=== PATIENT | male | born 1955 | race American Indian/Alaskan Native ===

== ENCOUNTER 2016-09-29 18:30 | Emergency (ER) | payer MEDICARE, OTHER ==
[2016-09-29 18:43] VITALS: BP 129/68
[2016-09-29 19:47] LABS: CHLORIDE,CL 98 mmol/L (101-111); SODIUM,NA 135 mmol/L (135-145)
[2016-09-29] MEDS ORDERED: Albuterol/Ipratropium 3.0-0.5 MG/3 ML Neb Soln NEB ONE (19:54)
[2016-09-29] MEDS ORDERED: Acetaminophen/oxyCODONE 325-5 MG Tab PO ONE (20:47)
[2016-09-29] MEDS ORDERED: Azithromycin 250 MG Tab PO ONE (20:48)
--- NOTE | 2016-09-29 20:51 | EDM.PDOC ---
ED HPI GENERAL MEDICAL PROBLEM - General Chief Complaint: General Stated Complaint: SICK IN BY AMB Time Seen by Provider: 09/29/16 19:00 Source of Information: Reports: Patient, Family History Limitations: Reports: No limitations - History of Present Illness INITIAL COMMENTS - FREE TEXT/NARRATIVE: ED via [facility] ,c/o not feeling well with fever, weakness. ocassional dry cough for past few weeks. Tylenol 2 hours SECURITY LEAD. notes BP elevated last night and hi temp, ambulance called by son but patient refused transport. Brief chest pain took 2 nitro. Notes takes nitro at least one time monthly. Location: Reports: generalized Treatments SECURITY LEAD: Reports: Acetaminophen Bilateral Shoulder Pain Score (Numeric/FACES): 8 - Related Data Allergies Allergy/AdvReac Type Severity Reaction Status Date / Time Penicillins Allergy Shortness Verified 09/29/16 18:48 of Breath ibuprofen [From Motrin] AdvReac Redness Verified 09/29/16 18:48 Home Meds: Home Meds Furosemide [Furosemide] 10/17/13 [History] Furosemide [Furosemide] 0.5 tab PO DAILY 10/17/13 [History] Insulin Detemir [Levemir] 10/17/13 [History] Loratadine [Claritin] 1 tab PO ASDIRECTED 10/17/13 [History] Zolpidem [Ambien] 1 tab PO ASDIRECTED 10/17/13 [History] atorvaSTATin [Lipitor] 20 mg PO BEDTIME 10/17/13 [History] oxyCODONE HCl [Oxycodone HCl] 10/17/13 [History] Metformin 01/05/16 [History] Past Medical History Cardiovascular History: Reports: Afib, Heart Failure, Hypertension, [place] Respiratory History: Reports: Sleep apnea Gastrointestinal History: Reports: GERD Genitourinary History: Reports: Renal calculus, Renal disease Musculoskeletal History: Reports: Other (see below) Other Musculoskeletal History: chronic bilat. shoulder pain states he has no rotator cuffs left Neurological History: Reports: Other (see below) Other Neuro History: headache Endocrine/Metabolic History: Reports: Diabetes, type II - Past Surgical History Cardiovascular Surgical History: Reports: None GI Surgical History: Reports: None Neurological Surgical History: Reports: Discectomy Musculoskeletal Surgical History: Reports: None Social & Family History - Tobacco Use Smoking Status *Q: Never Smoker Years of Tobacco use: 20 Packs/Tins Daily: 1 Used Tobacco, but Quit: Yes Month Tobacco Last Used: unknown Second Hand Smoke Exposure: Yes - Caffeine Use Caffeine Use: Reports: Coffee, Tea - Alcohol Use Days Per Week of Alcohol Use: 0 - Recreational Drug Use Recreational Drug Use: No ED ROS GENERAL - Review of Systems Review Of Systems: See Below Constitutional: Reports: fever, chills, weakness HEENT: Reports: No symptoms Respiratory: Reports: cough Cardiovascular: Reports: Chest pain (last ruma no radiation), Blood pressure problem (last ruma) : Reports: no symptoms Musculoskeletal: Reports: no symptoms Skin: Reports: no symptoms Neurological: Reports: weakness (general) Psychiatric: Reports: No symptoms ED EXAM, GENERAL - Physical Exam Exam: See Below Exam Limited By: No limitations General Appearance: alert, anxious (irritable), mild distress Eye Exam: bilateral eye: EOMI Ears: normal external exam Ear Exam: bilateral ear: TM normal Nose: normal inspection Throat/Mouth: Normal inspection Head: atraumatic, normocephalic Neck: normal inspection Respiratory/Chest: no respiratory distress, wheezing (upper bilateral), other ( rare dry cough). No: crackles, rales, rhonchi Cardiovascular: normal peripheral pulses, regular rate, rhythm, no edema GI/Abdominal: normal bowel sounds Extremities: normal inspection Neurological: alert, oriented Psychiatric: flat affect Skin Exam: Warm, Dry, Intact, Normal color Course - Vital Signs Last Recorded V/S: Last Vital Signs Temp 101.1 F H 09/29/16 20:33 Pulse 96 09/29/16 18:36 Resp 19 09/29/16 18:36 BP 129/68 09/29/16 18:36 Pulse Ox 94 L 09/29/16 18:36 - Orders/Labs/Meds Orders: Active Orders 24 hr Category Date Time Status EKG 12 Lead [EKG Documentation Completion] [] URGENT Care 09/29/16 19:15 Active Glucose [Blood Glucose Check, Bedside] [] ONETIME Care 09/29/16 19:14 Active RT Aerosol Therapy [] ASDIRECTED Care 09/29/16 19:54 Active CULTURE STREP A CONFIRMATION [] Stat Lab 09/29/16 19:00 Results STREP SCRN A RAPID W CULT CONF [] Stat Lab 09/29/16 19:00 Results Labs: Laboratory Tests 09/29/16 09/29/16 09/29/16 Range/Units 19:14 19:20 19:20 WBC 13.7 H (5.0-10.0) 10^3/uL RBC 4.48 L (4.6-6.2) 10^6/uL Hgb 12.8 L (14.0-18.0) g/dL Hct 38.9 L (40.0-54.0) % MCV 86.8 (80-100) fL MCH 28.6 (27.0-34.0) pg MCHC 32.9 L (33.0-35.0) g/dL Plt Count 268 (150-450) 10^3/uL Neut % (Auto) 82.8 H (42.2-75.2) % Lymph % (Auto) 9.4 L (20.5-50.1) % [place] % (Auto) 7.5 (2-8) % Eos % (Auto) 0.1 L (1.0-3.0) % Baso % (Auto) 0.2 (0.0-1.0) % Sodium 135 (135-145) mmol/L Potassium 4.5 (3.6-5.0) mmol/L Chloride 98 L (101-111) mmol/L Carbon Dioxide 27.0 (21.0-31.0) mmol/L Anion Gap 14.5 BUN 16 (7-18) mg/dL Creatinine 1.2 (0.6-1.3) mg/dL Est Cr Clr Drug Dosing 64.13 mL/min Estimated GFR (MDRD) > 60 BUN/Creatinine Ratio 13.33 Glucose 120 H (74-105) mg/dL POC Glucose (70-105) mg/dl Lactic Acid (0.5-2.2) mmol/L Calcium 8.9 (8.4-10.2) mg/dl Total Bilirubin 0.3 (0.2-1.0) mg/dL AST 26 (10-42) IU/L ALT 18 (10-60) IU/L Alkaline Phosphatase 81 (42-121) IU/L Troponin I < 0.02 (0.00-0.02) ng/ml B-Natriuretic Peptide 29 (0-100) pg/ml Total Protein 7.8 (6.7-8.2) g/dl Albumin 3.8 (3.2-5.5) g/dl Globulin 4.0 Albumin/Globulin Ratio 0.95 Amylase 25 L (28-100) U/L Lipase 18 L (22-51) U/L Urine Color Yellow (YELLOW) Urine Appearance Slightly cloudy (CLEAR) Urine pH 6.0 (5.0-9.0) Ur Specific [place] 1.010 (1.005-1.030) Urine Protein >=300 H (NEGATIVE) Urine Glucose (UA) Negative (NEGATIVE) Urine Ketones Negative (NEGATIVE) Urine Occult Blood Trace-lysed H (NEGATIVE) Urine Nitrite Negative (NEGATIVE) Urine Bilirubin Negative (NEGATIVE) Urine Urobilinogen 0.2 (0.2-1.0) mg/dL Ur Leukocyte Esterase Negative (NEGATIVE) Urine RBC 0-5 /HPF Urine WBC 0-5 (0-5/HPF) /HPF Ur Epithelial Cells Few /HPF Urine Bacteria Few (0-FEW/HPF) /HPF 09/29/16 09/29/16 Range/Units 19:20 19:35 WBC (5.0-10.0) 10^3/uL RBC (4.6-6.2) 10^6/uL Hgb (14.0-18.0) g/dL Hct (40.0-54.0) % MCV (80-100) fL MCH (27.0-34.0) pg MCHC (33.0-35.0) g/dL Plt Count (150-450) 10^3/uL Neut % (Auto) (42.2-75.2) % Lymph % (Auto) (20.5-50.1) % [place] % (Auto) (2-8) % Eos % (Auto) (1.0-3.0) % Baso % (Auto) (0.0-1.0) % Sodium (135-145) mmol/L Potassium (3.6-5.0) mmol/L Chloride (101-111) mmol/L Carbon Dioxide (21.0-31.0) mmol/L Anion Gap BUN (7-18) mg/dL Creatinine (0.6-1.3) mg/dL Est Cr Clr Drug Dosing mL/min Estimated GFR (MDRD) BUN/Creatinine Ratio Glucose (74-105) mg/dL POC Glucose 123 H (70-105) mg/dl Lactic Acid 1.1 (0.5-2.2) mmol/L Calcium (8.4-10.2) mg/dl Total Bilirubin (0.2-1.0) mg/dL AST (10-42) IU/L ALT (10-60) IU/L Alkaline Phosphatase (42-121) IU/L Troponin I (0.00-0.02) ng/ml B-Natriuretic Peptide (0-100) pg/ml Total Protein (6.7-8.2) g/dl Albumin (3.2-5.5) g/dl Globulin Albumin/Globulin Ratio Amylase (28-100) U/L Lipase (22-51) U/L Urine Color (YELLOW) Urine Appearance (CLEAR) Urine pH (5.0-9.0) Ur Specific [place] (1.005-1.030) Urine Protein (NEGATIVE) Urine Glucose (UA) (NEGATIVE) Urine Ketones (NEGATIVE) Urine Occult Blood (NEGATIVE) Urine Nitrite (NEGATIVE) Urine Bilirubin (NEGATIVE) Urine Urobilinogen (0.2-1.0) mg/dL Ur Leukocyte Esterase (NEGATIVE) Urine RBC /HPF Urine WBC (0-5/HPF) /HPF Ur Epithelial Cells /HPF Urine Bacteria (0-FEW/HPF) /HPF Meds: Medications Discontinued Medications Generic Name Dose Route Start Last Admin Trade Name Cucoq PRN Reason Stop Dose Admin Albuterol/Ipratropium 3 ml 09/29/16 19:54 09/29/16 19:59 Duoneb 3.0-0.5 Mg/3 Ml NEB 09/29/16 19:55 3 ml ONETIME ONE Administration Azithromycin 500 mg 09/29/16 20:48 09/29/16 20:55 Zithromax PO 09/29/16 20:49 500 mg ONETIME ONE Administration Oxycodone/Acetaminophen 1 tab 09/29/16 20:47 09/29/16 20:56 Percocet 325-5 Mg PO 09/29/16 20:48 1 tab ONETIME ONE Administration - Re-Assessments/Exams Free Text/Narrative Re-Assessment/Exam: Increasing agitation while awaiting results from ordered studies, c/o back pain from having to lie in bed and chair uncomfortable, has chronic pain and overdue for oxy. Demanding to leave. Stating he had been here over 4 hours. Patient unreceptive to explanation of processing time for studies and results. ED also busy with multiple patients. Actual ED time 2 hours. Cresencio with while attempting to answer her questions and explain discharge plan. 09/30/16 05:43 Departure - Departure Time of Disposition: 05:42 Disposition: Home, Self-Care 01 Condition: fair, undetermined Clinical Impression: Bronchitis Instructions: Acute Bronchitis Referrals: Armando Esparza MD [Ordering Only Provider] - Forms: ED Department Discharge Additional Instructions: azithromycin 250mg one daily x4 increase fluid intake humidification tylenol as needed for fever tessalon pearles 200mg one every 8 hours as needed for cough robitussin per label instructions follow up if symptoms worsening - My Orders Last 24 Hours: My Active Orders 09/29/16 19:00 CULTURE STREP A CONFIRMATION [RM] Stat STREP SCRN A RAPID W CULT CONF [RM] Stat 09/29/16 19:14 Glucose [Blood Glucose Check, Bedside] [RC] ONETIME 09/29/16 19:15 EKG 12 Lead [EKG Documentation Completion] [RC] URGENT 09/29/16 19:54 RT Aerosol Therapy [RC] ASDIRECTED - Assessment/Plan Last 24 Hours: My Active Orders 09/29/16 19:00 CULTURE STREP A CONFIRMATION [RM] Stat STREP SCRN A RAPID W CULT CONF [RM] Stat 09/29/16 19:14 Glucose [Blood Glucose Check, Bedside] [RC] ONETIME 09/29/16 19:15 EKG 12 Lead [EKG Documentation Completion] [RC] URGENT 09/29/16 19:54 RT Aerosol Therapy [RC] ASDIRECTED
--- NOTE | 2016-09-30 14:40 | EKG ---
09/29/2016- TAN HE - A 12-lead EKG shows normal sinus rhythm. No significant ST elevation or ST depression noted on this 12-lead EKG except for nonspecific ST changes noted on lead aVR. [facility] /[id number]
== END 2016-09-29 20:59 | disposition home or self-care (01) ==
LOC: DL.ED 18:30
DX: J40 Bronchitis, not specified as acute or chronic (principal); I48.91 Unspecified atrial fibrillation; I11.0 Hypertensive heart disease with heart failure; I50.9 Heart failure, unspecified; I25.2 Old myocardial infarction; K21.9 Gastro-esophageal reflux disease without esophagitis; E11.9 Type 2 diabetes mellitus without complications; Z88.6 Allergy status to analgesic agent; Z88.0 Allergy status to penicillin; Z79.4 Long term (current) use of insulin; Z79.899 Other long term (current) drug therapy; Z79.84 Long term (current) use of oral hypoglycemic drugs
CPT/HCPCS: 36415; 71010; 80053; 81001; 82150; 82962; 83605; 83690; 83880; 84484; 85025; 87081; 87430; 87804; 93005; 93010; 94640; 99284; A9270

== ENCOUNTER 2016-10-14 01:23 | Emergency (ER) | payer MEDICARE, OTHER ==
[2016-10-14 01:38] VITALS: BP 150/78
[2016-10-14] MEDS ORDERED: Pantoprazole 80 MG in Sodium Chloride 0.9% 100 ML IV ONE (01:44)
[2016-10-14 02:00] LABS: CHLORIDE,CL 108 mmol/L (101-111); SODIUM,NA 140 mmol/L (135-145)
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
[2016-10-14] MEDS ORDERED: oxyCODONE 5 MG Tab PO ONE (03:09)
--- NOTE | 2016-10-14 11:09 | EKG ---
10/14/2016 - TAN HE - EKG shows normal sinus rhythm. [facility] /[id number]
== END 2016-10-14 03:21 | disposition left against medical advice (07) ==
LOC: DL.ED 01:23
DX: R07.9 Chest pain, unspecified (principal); I48.91 Unspecified atrial fibrillation; I11.0 Hypertensive heart disease with heart failure; I50.9 Heart failure, unspecified; I25.2 Old myocardial infarction; K21.9 Gastro-esophageal reflux disease without esophagitis; E11.9 Type 2 diabetes mellitus without complications; Z88.0 Allergy status to penicillin; Z88.6 Allergy status to analgesic agent; Z79.4 Long term (current) use of insulin
CPT/HCPCS: 36415; 71010; 80053; 82150; 82553; 82962; 83605; 83690; 83880; 84484; 85025; 85610; 93005; 93010; 96365; 99285; C9113; J7050; 99284

== ENCOUNTER 2016-10-14 12:54 | Emergency (ER) | payer MEDICARE, OTHER ==
--- NOTE | 2016-10-14 14:14 | EDM.PDOC ---
ED HPI GENERAL MEDICAL PROBLEM - General Chief Complaint: Abdominal Pain Stated Complaint: abdominal pain Time Seen by Provider: 10/14/16 13:46 Source of Information: Reports: Patient History Limitations: Reports: No limitations - History of Present Illness INITIAL COMMENTS - FREE TEXT/NARRATIVE: This 61 yo male patient was sent to the ED from Dr. Mcmahan's office. The patient reports has has not been feeling well over the past 3 months. When he was asked about what he was feeling, the patient reports he has been having abdominal pain, coughing up blood intermittently, diarrhea intermittently, and having difficulties urinating. The patient was upset that law enforcement was present during his visit. The patient was advised that law enforcement was called due to his behavior during the previous visit (at 0300 this morning). The patient stated that he was not behaving bad last night, but "that female provider was being a racist." The patient reports that the "punks" from the ambulance "did not know what they were doing." The patient went on to say, "I will go up to that ambulance crew, stand them up on their head and show them what to be afraid of." Duration: Week(s): (3 months), Constant Location: Reports: abdomen Quality: Reports: Ache Severity: moderate Improves with: Reports: None Worsens with: Reports: None Middle Abdominal Pain Score (Numeric/FACES): 7 - Related Data Allergies Allergy/AdvReac Type Severity Reaction Status Date / Time Penicillins Allergy Shortness Verified 10/14/16 13:18 of Breath ibuprofen [From Motrin] AdvReac Redness Verified 10/14/16 13:18 Home Meds: Home Meds Furosemide [Furosemide] 10/17/13 [History] Furosemide [Furosemide] 0.5 tab PO DAILY 10/17/13 [History] Insulin Detemir [Levemir] 10/17/13 [History] Loratadine [Claritin] 1 tab PO ASDIRECTED 10/17/13 [History] Zolpidem [Ambien] 1 tab PO ASDIRECTED 10/17/13 [History] atorvaSTATin [Lipitor] 20 mg PO BEDTIME 10/17/13 [History] oxyCODONE HCl [Oxycodone HCl] 10/17/13 [History] Metformin 01/05/16 [History] Past Medical History Cardiovascular History: Reports: Afib, Heart Failure, High cholesterol, Hypertension, [place] Respiratory History: Reports: Sleep apnea Gastrointestinal History: Reports: GERD Genitourinary History: Reports: Renal calculus, Renal disease Musculoskeletal History: Reports: Other (see below) Other Musculoskeletal History: chronic bilat. shoulder pain states he has no rotator cuffs left Neurological History: Reports: Other (see below) Other Neuro History: headache Endocrine/Metabolic History: Reports: Diabetes, type II - Past Surgical History Cardiovascular Surgical History: Reports: None GI Surgical History: Reports: None Neurological Surgical History: Reports: Discectomy Musculoskeletal Surgical History: Reports: None Social & Family History - Tobacco Use Smoking Status *Q: Former Smoker Years of Tobacco use: 20 Packs/Tins Daily: 1 Used Tobacco, but Quit: Yes Month Tobacco Last Used: unknown Second Hand Smoke Exposure: No - Caffeine Use Caffeine Use: Reports: Coffee - Alcohol Use Days Per Week of Alcohol Use: 0 - Recreational Drug Use Recreational Drug Use: No ED ROS GENERAL - Review of Systems Review Of Systems: ROS reveals no pertinent complaints other than HPI. ED EXAM, GENERAL - Physical Exam Exam: See Below Exam Limited By: No limitations General Appearance: alert, WD/WN, anxious, moderate distress, obese Eye Exam: bilateral eye: EOMI, normal inspection, PERRL Ears: normal external exam, normal canal, hearing grossly normal, normal TMs Nose: normal inspection, normal mucosa, no blood Throat/Mouth: Normal inspection, Normal lips, Normal teeth, Normal gums, Normal oropharynx, Normal voice, No airway compromise Head: atraumatic, normocephalic Neck: normal inspection, supple, non-tender, full range of motion Respiratory/Chest: no respiratory distress, lungs clear, normal breath sounds, no accessory muscle use, chest non-tender Cardiovascular: normal peripheral pulses, regular rate, rhythm, no edema, no gallop, no JVD, no murmur, no rub GI/Abdominal: normal bowel sounds, no organomegaly, no distention, no abnormal bruit, no mass, tender (diffuse) (Male) Exam: Deferred Rectal (Males) Exam: Deferred Back Exam: normal inspection, full range of motion, NT Extremities: normal inspection, normal range of motion, non-tender, normal capillary refill, no pedal edema Neurological: alert, oriented, CN II-XII intact, normal cognition, normal gait, normal reflexes, no motor/sensory deficits Psychiatric: anxious Skin Exam: Intact, Normal color, No rash, Diaphoretic, Increased warmth Course - Vital Signs Last Recorded V/S: Last Vital Signs Temp 36.3 C 10/14/16 13:36 Pulse 100 10/14/16 13:36 Resp 20 10/14/16 13:36 BP 165/98 H 10/14/16 13:36 Pulse Ox 99 10/14/16 13:36 - Re-Assessments/Exams Free Text/Narrative Re-Assessment/Exam: 10/14/16 14:16 The patient was advised that we will get a sample of blood from the patient to compare to the samples taken earlier today. The patient initially refused to have any additional blood taken, but then finally agreed to the lab work. Soon after leaving the room, the patient and his came out of the room and said that they were going to leave here and go to [place]. The patient was advised that he should stay due to concern for any health problems that are getting worse. The patient was advised that he could from not getting things looked at prior to getting in a vehicle and driving all the way to [place]. The patient stated that he is 62 years old and is not afraid of . Departure - Departure Time of Disposition: 14:15 Disposition: Against Medical Advice 07 Condition: undetermined Clinical Impression: Abdominal pain Qualifiers: Abdominal location: unspecified location Qualified Code(s): R10.9 - Unspecified abdominal pain Forms: ED Department Discharge Care Plan Goals: This patient left prior to complete work-up.
== END 2016-10-14 13:50 | disposition left against medical advice (07) ==
LOC: DL.ED 12:54
CPT/HCPCS: 36415; 71010; 80053; 82150; 82553; 82962; 83605; 83690; 83880; 84484; 85025; 85610; 93005; 93010; 96365; 99282; 99284; 99285; C9113; J7050

== ENCOUNTER 2017-04-05 12:40 | Emergency (ER) | payer MEDICARE, MEDICAID ==
[2017-04-05 13:06] VITALS: BP 168/81
--- NOTE | 2017-04-05 13:18 | EDM.PDOC ---
ED HPI GENERAL MEDICAL PROBLEM - General Chief Complaint: Upper Extremity Injury/Pain Stated Complaint: SHOULDER PAIN Time Seen by Provider: 04/05/17 13:12 Source of Information: Reports: Patient History Limitations: Reports: No Limitations - History of Present Illness INITIAL COMMENTS - FREE TEXT/NARRATIVE: 61 yo white male s/p rotator cuff surgery 04/04/2017. Past Hx. of Chronic Opiod use. Pt. states the 5mg Oxycodone does not work Onset: Today Onset Date: 04/05/17 Onset Time: 06:00 Duration: Hour(s): Location: Reports: Upper Extremity, Right Quality: Reports: Ache Improves with: Reports: Rest Worsens with: Reports: Movement Context: Reports: Trauma (recent surgery) Associated Symptoms: Reports: No Other Symptoms Right Shoulder Pain Score (Numeric/FACES): 10 - Related Data Allergies Allergy/AdvReac Type Severity Reaction Status Date / Time Penicillins Allergy Shortness Verified 10/14/16 13:18 of Breath ibuprofen [From Motrin] AdvReac Redness Verified 10/14/16 13:18 Home Meds: Home Meds Furosemide [Furosemide] 10/17/13 [History] Furosemide [Furosemide] 0.5 tab PO DAILY 10/17/13 [History] Insulin Detemir [Levemir] 10/17/13 [History] Loratadine [Claritin] 1 tab PO ASDIRECTED 10/17/13 [History] Zolpidem [Ambien] 1 tab PO ASDIRECTED 10/17/13 [History] atorvaSTATin [Lipitor] 20 mg PO BEDTIME 10/17/13 [History] oxyCODONE HCl [Oxycodone HCl] 10/17/13 [History] Metformin 01/05/16 [History] Past Medical History Cardiovascular History: Reports: Afib, Heart Failure, High Cholesterol, Hypertension, [place] Respiratory History: Reports: Sleep Apnea Gastrointestinal History: Reports: GERD Genitourinary History: Reports: Renal Calculus, Renal Disease Musculoskeletal History: Reports: Other (See Below) Other Musculoskeletal History: chronic bilat. shoulder pain states he has no rotator cuffs left Neurological History: Reports: Other (See Below) Other Neuro History: headache Endocrine/Metabolic History: Reports: Diabetes, Type II - Past Surgical History GI Surgical History: Reports: None Social & Family History - Family History Family Medical History: Noncontributory - Tobacco Use Smoking Status *Q: Never Smoker Years of Tobacco use: 20 Packs/Tins Daily: 1 Used Tobacco, but Quit: Yes Month Tobacco Last Used: unknown Second Hand Smoke Exposure: No - Caffeine Use Caffeine Use: Reports: Coffee - Alcohol Use Days Per Week of Alcohol Use: 0 - Recreational Drug Use Recreational Drug Use: No Review of Systems - Review of Systems Review Of Systems: See Below Constitutional: Reports: No Symptoms Eyes: Reports: No Symptoms Ears: Reports: No Symptoms Nose: Reports: No Symptoms Mouth/Throat: Reports: No Symptoms Respiratory: Reports: No Symptoms Cardiovascular: Reports: No Symptoms GI/Abdominal: Reports: No Symptoms Genitourinary: Reports: No Symptoms Musculoskeletal: Reports: Shoulder Pain (right) Skin: Reports: No Symptoms Neurological: Reports: No Symptoms Psychiatric: Reports: No Symptoms ED EXAM, GENERAL - Physical Exam Exam: See Below Exam Limited By: No Limitations General Appearance: No Apparent Distress, Obese Eye Exam: Bilateral Eye: EOMI Ears: Normal External Exam Nose: Normal Inspection Throat/Mouth: Normal Inspection Head: Atraumatic Neck: Normal Inspection Respiratory/Chest: No Respiratory Distress Cardiovascular: Normal Peripheral Pulses Peripheral Pulses: 2+: Radial (L), Radial (R) GI/Abdominal: Normal Bowel Sounds Back Exam: Normal Inspection Extremities: Limited Range of Motion (right shoulder) Neurological: Alert, Oriented, CN II-XII Intact Psychiatric: Normal Affect Skin Exam: Warm, Dry Lymphatic: No Adenopathy Course - Vital Signs Last Recorded V/S: Last Vital Signs Temp 36.2 C 04/05/17 12:56 Pulse 76 04/05/17 12:56 Resp 16 04/05/17 12:56 BP 168/81 H 04/05/17 12:56 Pulse Ox 99 04/05/17 12:56 - Orders/Labs/Meds Meds: Medications Discontinued Medications Generic Name Dose Route Start Last Admin Trade Name Freq PRN Reason Stop Dose Admin Hydromorphone HCl 2 mg 04/05/17 13:35 Dilaudid IM 04/05/17 13:36 ONETIME ONE Departure - Departure Time of Disposition: 13:39 Disposition: Home, Self-Care 01 Condition: Good Clinical Impression: Post-op pain - Discharge Information Forms: ED Department Discharge Additional Instructions: Rest and Take oral pain medication as directed only F/U w/ Orthopedic
[2017-04-05] MEDS ORDERED: HYDROmorphone 1 MG/ML Syringe IM ONE (13:35)
== END 2017-04-05 13:59 | disposition home or self-care (01) ==
LOC: DL.ED 12:40
DX: G89.18 Other acute postprocedural pain (principal); M25.511 Pain in right shoulder; I48.91 Unspecified atrial fibrillation; E78.00 Pure hypercholesterolemia, unspecified; I10 Essential (primary) hypertension; I25.2 Old myocardial infarction; K21.9 Gastro-esophageal reflux disease without esophagitis; E11.9 Type 2 diabetes mellitus without complications; Z88.0 Allergy status to penicillin; Z88.6 Allergy status to analgesic agent; Z79.899 Other long term (current) drug therapy; Z79.4 Long term (current) use of insulin
CPT/HCPCS: 96372; 99283; J1170

== ENCOUNTER → 2018-04-24 | Day surgery (SDC) | payer MEDICARE, MEDICAID ==
[~2018-04-24] MED LIST: Dextrose 5%-0.45% NaCl 1,000 ML IV SCH; Midazolam 1 MG/ML 2 ML SDV IV ONE; Midazolam 1 MG/ML 2 ML SDV ONE; Sodium Chloride 0.9% 10 ML Syringe FLUSH PRN; fentaNYL 100 MCG/2 ML SDV IV ONE; fentaNYL 100 MCG/2 ML SDV ONE
[2018-04-24 11:11] VITALS: BP 118/63
--- NOTE | 2018-04-24 11:15 | LETTER ---
04/24/2018 Emmie Landaverde MD [facility] [address] [place] [address] RE: RISHABH CRAFT : [address] Landaverde: Mr. Rishabh Craft had esophagogastroduodenoscopy done this morning and he tolerated the procedure well. I herewith send a copy of the endoscopy note and photographs for your review. Thank you. Sincerely, [facility] /[id number]
--- NOTE | 2018-04-24 11:19 | OR ---
DATE: 04/24/2018 PROCEDURE: Esophagogastroduodenoscopy and multiple pinch biopsies. INSTRUMENT USED: CIF-H180 AL Olympus video panendoscope. PREMEDICATIONS: Fentanyl 100 mcg intravenous, Versed 2 mg intravenous. Nasal O2 cannula. The procedure was done under pulse oximetry, BP recording, and telemetry monitor. INDICATION: The patient with persistent abdominal pain and chronic diarrhea, unexplained and not responsive to medical measures, on high-dose PPI. The esophagogastroduodenoscopy was performed for detection of any active erosive lesions, Mae esophagus and/or malignancy also under consideration. H. pylori status to be determined, small bowel biopsies to be obtained for celiac disease if indicated. Endoscopic hemostasis therapy if needed. DESCRIPTION OF PROCEDURE: The scope was passed with ease. Adequate visualization of the esophagus was made from proximal to distal areas. No upper esophageal lesions identified. No distal esophageal stricture. No uphill or downhill esophageal varices. No Sydney-Miller tear. No evidence of erosive esophagitis by Swift criteria. No esophageal polyp or tumor mass identified. Z-line was seen at around 40 cm distal to the oral verge, configuration consistent with grade 1 by ZAP classification. No proximal gastric varices noted. Gastric fundus examination by retroflexion showed no polypoid lesions. No gastric ulcer, malignant mass, or vascular ectasia identified. Some prominent pre-pyloric gastric antral folds were noted. Multiple pinch biopsies were obtained and sent for histopathology. The pinch biopsies were also obtained from the gastric antrum and proximal body and sent for PyloriTek test for H. pylori and histopathology. Duodenal bulb showed no ulcer. Visualized second part of the duodenum was unremarkable. Multiple pinch biopsies, 4 in number, were taken from different areas of the second part of the duodenum and also tissues were obtained from 9 o'clock and 12 o'clock positions of the duodenal bulb, and sent for any histopathologic evidence of celiac disease. No bleeding was noted from any of the visualized areas at the completion of examination. Photographs were taken of the duodenal bulb, gastric, antrum, fundus, and distal esophagus. IMPRESSION: Normal study. The patient tolerated the procedure well. [facility] /[id number]
== END | disposition home or self-care (01) ==
LOC: DL.ENDO 06:57
PROVIDERS: ATTEND Internal Medicine Gastroenterology
DX: R10.30 Lower abdominal pain, unspecified (principal); K52.9 Noninfective gastroenteritis and colitis, unspecified; I12.9 Hypertensive chronic kidney disease with stage 1 through stage 4 chronic kidney disease, or unspecified chronic kidney disease; E11.22 Type 2 diabetes mellitus with diabetic chronic kidney disease; N18.9 Chronic kidney disease, unspecified; E66.01 Morbid (severe) obesity due to excess calories; E78.5 Hyperlipidemia, unspecified; F41.1 Generalized anxiety disorder; F32.9 Major depressive disorder, single episode, unspecified; G47.33 Obstructive sleep apnea (adult) (pediatric); Z79.82 Long term (current) use of aspirin; Z79.899 Other long term (current) drug therapy; Z88.0 Allergy status to penicillin; Z88.6 Allergy status to analgesic agent; Z88.8 Allergy status to other drugs, medicaments and biological substances
CPT/HCPCS: 43239; 87077; J2250; J3010; J7042

== ENCOUNTER 2020-02-02 22:38 | Emergency (ER) | payer MEDICARE, MEDICAID ==
--- NOTE | 2020-02-02 23:07 | EDM.PDOC ---
ED HPI GENERAL MEDICAL PROBLEM - General Chief Complaint: Respiratory Problem Stated Complaint: SICK WITH A COLD? COUGH/SOB Time Seen by Provider: 02/02/20 22:57 Source of Information: Reports: Patient, RN, RN Notes Reviewed History Limitations: Reports: No Limitations - History of Present Illness INITIAL COMMENTS - FREE TEXT/NARRATIVE: Patient presents to ER with complaint of cough for the past 3 to 4 days. Patient states he has had some stuffiness and runny nose. States he was taken off of his decongestant due to his blood pressure. Patient states he has not knowingly been in contact with anyone with known COVID. Patient states he has been quarantining for the most part at home. Patient denies any fever chills, nausea vomiting, diarrhea, states he does have some chest pains and shortness of breath with cough and inspiration. Onset: Gradual - Related Data Allergies Allergy/AdvReac Type Severity Reaction Status Date / Time gabapentin Allergy Hives Verified 01/26/19 19:47 Penicillins Allergy Shortness Verified 01/26/19 19:47 of Breath ibuprofen [From Motrin] AdvReac Redness Verified 01/26/19 19:47 bee stings Allergy Anaphylactic Uncoded 01/26/19 19:47 Shock Home Meds: Home Meds Furosemide 10 mg PO DAILY PRN 10/17/13 [History] Insulin Detemir [Levemir] 50 units INJECT BID 10/17/13 [History] Zolpidem [Ambien] 10 mg PO BEDTIME 10/17/13 [History] Aspirin [Adult Low Dose Aspirin EC] 81 mg PO DAILY 10/30/17 [History] FLUoxetine HCl [Fluoxetine HCl] 40 mg PO DAILY 10/30/17 [History] Insulin Aspart [Novolog Flexpen] 20 - 40 unit INJECT BID 10/30/17 [History] Lisinopril 40 mg PO DAILY 10/30/17 [History] Metoprolol Succinate 50 mg PO DAILY 10/30/17 [History] Nitroglycerin [Nitrostat] 0.4 mg SL ASDIRECTED PRN 10/30/17 [History] Omeprazole 20 mg PO BID 10/30/17 [History] Pregabalin [Lyrica] 100 mg PO TID 10/30/17 [History] amLODIPine Besylate [Amlodipine Besylate] 10 mg PO DAILY 10/30/17 [History] atorvaSTATin [Lipitor] 40 mg PO DAILY 10/30/17 [History] hydroCHLOROthiazide [Hydrochlorothiazide] 5 mg PO DAILY 10/30/17 [History] metFORMIN HCl [Metformin HCl] 1,000 mg PO BID 10/30/17 [History] Liraglutide [Victoza] 1.8 mg PO DAILY 04/23/18 [History] Past Medical History HEENT History: Reports: Impaired Vision Other HEENT History: WEARS CORRECTIVE LENS Cardiovascular History: Reports: Afib, Heart Failure, High Cholesterol, Hypertension, [place] Respiratory History: Reports: Sleep Apnea, Other (See Below) Other Respiratory History: Patient states he coughs often Gastrointestinal History: Reports: Chronic Diarrhea, GERD Genitourinary History: Reports: Renal Calculus, Renal Disease Musculoskeletal History: Reports: Other (See Below) Other Musculoskeletal History: chronic bilat. shoulder pain states he has no rotator cuffs left Neurological History: Reports: Headaches, Chronic, Other (See Below) Other Neuro History: headache Psychiatric History: Reports: None Endocrine/Metabolic History: Reports: Diabetes, Type II, Obesity/BMI 30+ Hematologic History: Reports: None Immunologic History: Reports: None Oncologic (Cancer) History: Reports: None Dermatologic History: Reports: Psoriasis - Infectious Disease History Infectious Disease History: Reports: None - Past Surgical History Head Surgeries/Procedures: Reports: None HEENT Surgical History: Reports: None Cardiovascular Surgical History: Reports: Other (See Below) Other Cardiovascular Surgeries/Procedures: Angiogram per patient no stents Respiratory Surgical History: Reports: None GI Surgical History: Reports: Colonoscopy Endocrine Surgical History: Reports: None Neurological Surgical History: Reports: Discectomy Musculoskeletal Surgical History: Reports: Shoulder Surgery Oncologic Surgical History: Reports: None Dermatological Surgical History: Reports: None Social & Family History - Family History Family Medical History: Noncontributory - Caffeine Use Caffeine Use: Reports: Coffee ED ROS GENERAL - Review of Systems Review Of Systems: Comprehensive ROS is negative, except as noted in HPI. ED EXAM, GENERAL - Physical Exam Exam: See Below Exam Limited By: No Limitations General Appearance: Alert, WD/WN, Anxious, Mild Distress Eye Exam: Bilateral Eye: EOMI, Normal Inspection Ears: Normal External Exam, Hearing Grossly Normal Nose: Normal Inspection Throat/Mouth: Normal Inspection, Normal Lips, Normal Teeth, Normal Gums, Normal Oropharynx, Normal Voice, No Airway Compromise Head: Atraumatic, Normocephalic Neck: Normal Inspection, Supple, Non-Tender, Full Range of Motion Respiratory/Chest: No Respiratory Distress, Lungs Clear, Normal Breath Sounds, No Accessory Muscle Use, Chest Non-Tender Cardiovascular: Normal Peripheral Pulses, Regular Rate, Rhythm, No Edema, No Gallop, No JVD, No Murmur, No Rub Peripheral Pulses: 2+: Radial (L), Radial (R) GI/Abdominal: Normal Bowel Sounds, Soft, Non-Tender, Other (Complains of some muscular tenderness with coughing) (Male) Exam: Deferred Rectal (Males) Exam: Deferred Back Exam: Normal Inspection, Decreased Range of Motion Extremities: Normal Inspection, Normal Range of Motion, Non-Tender, Normal Capillary Refill, No Pedal Edema Neurological: Alert, Oriented, CN II-XII Intact, Normal Cognition, Normal Gait, Normal Reflexes, No Motor/Sensory Deficits Psychiatric: Normal Affect, Normal Mood, Anxious (Very anxious regarding the COVID virus) Skin Exam: Warm, Dry, Intact, Normal Color, No Rash Lymphatic: No Adenopathy Course - Orders/Labs/Meds Labs: Laboratory Tests 02/02/20 Range/Units 22:55 COVID-19 (CORKY) Negative (NEGATIVE) Meds: Medications Discontinued Medications Generic Name Dose Route Start Last Admin Trade Name Freq PRN Reason Stop Dose Admin Guaifenesin/Codeine Phosphate 5 ml 02/02/20 23:29 02/02/20 23:39 Robitussin Ac PO 02/02/20 23:30 5 ml ONETIME ONE Administration Departure - Departure Time of Disposition: 23:27 Disposition: Home, Self-Care 01 Condition: Fair Clinical Impression: Viral upper respiratory infection - Discharge Information *PRESCRIPTION DRUG MONITORING PROGRAM REVIEWED*: No *COPY OF PRESCRIPTION DRUG MONITORING REPORT IN PATIENT VIVIAN: No Instructions: Cough, Adult, [id number], Upper Respiratory Infection, Adult, [id number] Referrals: PCP,None [Primary Care Provider] - Forms: ED Department Discharge Additional Instructions: Rx: Cheratussin for cough, Tessalon Perles for cough Follow-up and establish with primary care May use Coricidin HBP for decongestant
[2020-02-02] MEDS ORDERED: Codeine/guaiFENesin 10-100 MG/5 ML Syrup 5 ML Cup PO ONE (23:29)
[2020-02-04 00:16] VITALS: BP 118/60; PULSE 76
== END 2020-02-02 23:42 | disposition home or self-care (01) ==
LOC: DL.ED 22:38
DX: J06.9 Acute upper respiratory infection, unspecified (principal); I11.0 Hypertensive heart disease with heart failure; I50.9 Heart failure, unspecified; E78.00 Pure hypercholesterolemia, unspecified; I48.91 Unspecified atrial fibrillation; I25.2 Old myocardial infarction; K21.9 Gastro-esophageal reflux disease without esophagitis; E11.9 Type 2 diabetes mellitus without complications; E66.9 Obesity, unspecified; Z68.38 Body mass index [BMI] 38.0-38.9, adult; Z20.828 Contact with and (suspected) exposure to other viral communicable diseases; Z88.0 Allergy status to penicillin; Z88.6 Allergy status to analgesic agent; Z88.8 Allergy status to other drugs, medicaments and biological substances; Z91.030 Bee allergy status; Z79.4 Long term (current) use of insulin; Z79.82 Long term (current) use of aspirin; Z79.899 Other long term (current) drug therapy
CPT/HCPCS: 99283; A9270; U0002

== ENCOUNTER 2023-01-11 09:57 | Emergency (ER) | payer MEDICARE, MEDICAID ==
[2023-01-11 10:08] VITALS: BP 125/79; PULSE 81
[2023-01-11] MEDS ORDERED: Sodium Chloride 0.9% 10 ML Syringe FLUSH PRN (10:14)
[2023-01-11 10:21] LABS: BASOPHILS PERCENT AUTO 0.3 % (0.0-1.0); HEMATOCRIT 47.3 % (40.0-54.0); HEMOGLOBIN 15.3 g/dL (14.0-18.0); LYMPHOCYTES PERCENT AUTO 19.3 % (20.5-50.1); MEAN CORPUSCULAR HEMOGLOBIN 26.9 pg (27.0-34.0); MEAN CORPUSCULAR HGB CONC 32.3 g/dL (33.0-35.0); MEAN CORPUSCULAR VOLUME 83.3 fL (80-100); MONOCYTES PERCENT AUTO 8.1 % (2-8); NEUTROPHILS PERCENT AUTO 71.3 % (42.2-75.2); PLATELET COUNT,PLT 317 10^3/uL (150-450); RED BLOOD CELL COUNT 5.68 10^6/uL (4.6-6.2); WHITE BLOOD CELL COUNT,WBC 9.8 10^3/uL (5.0-10.0)
[2023-01-11 10:35] LABS: A/G RATIO 0.67; ALANINE AMINOTRANSFERASE,ALT 25 U/L (16-63); ALBUMIN 2.9 g/dL (3.4-5.0); ALKALINE PHOSPHATASE 127 U/L (46-116); ANION GAP 12.5 mEq/L (7-13); ASPARTATE AMNIOTRANSFERASE,AST 25 U/L (15-37); BILIRUBIN TOTAL 0.5 mg/dL (0.2-1.0); BLOOD UREA NITROGEN,BUN 12 mg/dL (7-18); BUN/CREATININE RATIO 8.3 (No establ ref range); CALCIUM 8.6 mg/dL (8.5-10.1); CARBON DIOXIDE,CO2 25 mmol/L (21-32); CHLORIDE,CL 106 mmol/L (98-107); CREATININE 1.44 mg/dL (0.70-1.30); ESTIMATED GFR 54 mL/min (>=60); GLUCOSE RANDOM 185 mg/dL (70-99); POTASSIUM,K 3.5 mmol/L (3.5-5.1); PROTEIN TOTAL,TP 7.2 g/dL (6.4-8.2); SODIUM,NA 140 mmol/L (136-145)
== END 2023-01-11 10:44 | disposition left against medical advice (07) ==
LOC: DL.ED 09:57
DX: Z53.21 Procedure and treatment not carried out due to patient leaving prior to being seen by health care provider (principal)
CPT/HCPCS: 36415; 80053; 84484; 85025; 93005

== ENCOUNTER 2023-08-18 18:19 | Emergency (ER) | payer MEDICARE, MEDICAID ==
[2023-08-18] MEDS ORDERED: Sodium Chloride 0.9% 10 ML Syringe FLUSH PRN (18:58)
[2023-08-18] MEDS ORDERED: Iopamidol 612 MG/ML 100 ML Bottle IVPUSH ONE (19:02)
[2023-08-18 19:10] LABS: APPEARANCE,URINE CLEAR (CLEAR); BILIRUBIN,URINE NEGATIVE (NEGATIVE); COLOR,URINE YELLOW (YELLOW); GLUCOSE,URINE 500 (NEGATIVE); KETONES,URINE NEGATIVE (NEGATIVE); LEUKOCYTE ESTERASE,URINE NEGATIVE (NEGATIVE); NITRITE,URINE NEGATIVE (NEGATIVE); OCCULT BLOOD,URINE NEGATIVE (NEGATIVE); PROTEIN,URINE 100 (NEGATIVE); UROBILINOGEN,URINE 0.2 mg/dL (0.2-1.0)
[2023-08-18 19:21] LABS: BACTERIA,URINE FEW /HPF (0-FEW/HPF); EPITHELIAL CELLS,URINE FEW /HPF (NOT SEEN); HYALINE CASTS,URINE FEW; MUCUS,URINE MODERATE /LPF (NOT SEEN); RBC,URINE 0-5 /HPF (0-5)
[2023-08-18 19:23] LABS: ANION GAP 15.4 mEq/L (7-13); BILIRUBIN TOTAL 0.4 mg/dL (0.2-1.0); BUN/CREATININE RATIO 10.7 (No establ ref range); CALCIUM 8.7 mg/dL (8.5-10.1); CREATININE 1.49 mg/dL (0.70-1.30); EST CRCL DRUG DOSING (CG) 47.18 mL/min; POTASSIUM,K 3.4 mmol/L (3.5-5.1); PROTEIN TOTAL,TP 7.4 g/dL (6.4-8.2)
[2023-08-18 19:26] LABS: A/G RATIO 0.68
[2023-08-18] MEDS ORDERED: Lidocaine 5% 700 MG Patch TOP ONE (20:01)
[2023-08-18 20:18] VITALS: BP 117/93; PULSE 78
== END 2023-08-18 20:15 | disposition home or self-care (01) ==
LOC: DL.ED 18:19
DX: R10.31 Right lower quadrant pain (principal); I11.0 Hypertensive heart disease with heart failure; I50.9 Heart failure, unspecified; E11.9 Type 2 diabetes mellitus without complications; E66.9 Obesity, unspecified; K21.9 Gastro-esophageal reflux disease without esophagitis; Z79.4 Long term (current) use of insulin; Z79.84 Long term (current) use of oral hypoglycemic drugs; Z79.899 Other long term (current) drug therapy; Z88.0 Allergy status to penicillin; Z88.6 Allergy status to analgesic agent; Z91.030 Bee allergy status
CPT/HCPCS: 36415; 74177; 80053; 81001; 83605; 99284; A9270; Q9967; J3490

== ENCOUNTER 2024-05-27 16:50 | Emergency (ER) | payer MEDICARE, MEDICAID ==
[2024-05-27] MEDS ORDERED: Sodium Chloride 0.9% 10 ML Syringe FLUSH PRN (17:09)
[2024-05-27 17:20] LABS: BASOPHILS PERCENT AUTO 0.3 % (0.0-1.0); EOSINOPHILS PERCENT AUTO 1.6 % (1.0-3.0); HEMOGLOBIN 13.7 g/dL (14.0-18.0); LYMPHOCYTES PERCENT AUTO 21.4 % (20.5-50.1); MEAN CORPUSCULAR HEMOGLOBIN 27.1 pg (27.0-34.0); MEAN CORPUSCULAR HGB CONC 31.9 g/dL (33.0-35.0); MONOCYTES PERCENT AUTO 6.6 % (2-8); NEUTROPHILS PERCENT AUTO 70.1 % (42.2-75.2); PLATELET COUNT,PLT 304 10^3/uL (150-450); RED BLOOD CELL COUNT 5.06 10^6/uL (4.6-6.2); WHITE BLOOD CELL COUNT,WBC 11.3 10^3/uL (5.0-10.0)
[2024-05-27 17:37] LABS: INR 1.1 (0.9-1.2); PROTHROMBIN TIME 10.9 SEC (9.0-12.0); PTT,PARTIAL THROMBOPLSTIN TIME 25.6 SEC (22.0-34.0)
[2024-05-27 17:40] LABS: A/G RATIO 0.88; ALANINE AMINOTRANSFERASE,ALT 27 U/L (16-63); ALKALINE PHOSPHATASE 163 U/L (46-116); ANION GAP 8.5 mEq/L (7-13); ASPARTATE AMNIOTRANSFERASE,AST 25 U/L (15-37); BILIRUBIN TOTAL 0.4 mg/dL (0.2-1.0); BLOOD UREA NITROGEN,BUN 17 mg/dL (7-18); C-REACTIVE PROTEIN 0.67 ng/dL (<=0.50); CALCIUM 8.9 mg/dL (8.5-10.1); CARBON DIOXIDE,CO2 30 mmol/L (21-32); CHLORIDE,CL 109 mmol/L (98-107); EST CRCL DRUG DOSING (CG) 41.35 mL/min; ESTIMATED GFR 44 mL/min (>=60); GLUCOSE RANDOM 83 mg/dL (70-99); LIPASE 28 U/L (16-77); MAGNESIUM 1.8 mg/dL (1.8-2.4); POTASSIUM,K 3.5 mmol/L (3.5-5.1); PROTEIN TOTAL,TP 6.4 g/dL (6.4-8.2); SODIUM,NA 144 mmol/L (136-145)
[2024-05-27 17:45] LABS: LACTIC ACID 1.2 mmol/L (0.4-2.0)
[2024-05-27] MEDS: Iopamidol 755 Mg/ML 100 ML Bottle IVPUSH ONE (17:45)
[2024-05-27] MEDS: Sodium Chloride 0.9% 1,000 ML IV ONE (18:29)
[2024-05-27] MEDS: 50% Dextrose in Water 50 ML Syringe IVPUSH ONE (18:42)
[2024-05-27 19:59] VITALS: BP 100/85; PULSE 72
== END 2024-05-27 19:54 | disposition home or self-care (01) ==
LOC: DL.ED 16:50
DX: R07.89 Other chest pain (principal); I25.2 Old myocardial infarction; I11.0 Hypertensive heart disease with heart failure; I50.9 Heart failure, unspecified; E78.00 Pure hypercholesterolemia, unspecified; K21.9 Gastro-esophageal reflux disease without esophagitis; E11.9 Type 2 diabetes mellitus without complications; E66.9 Obesity, unspecified; Z68.41 Body mass index [BMI] 40.0-44.9, adult; Z88.0 Allergy status to penicillin; Z88.8 Allergy status to other drugs, medicaments and biological substances; Z91.030 Bee allergy status; Z79.82 Long term (current) use of aspirin; Z79.4 Long term (current) use of insulin; Z79.899 Other long term (current) drug therapy
CPT/HCPCS: 36415; 71045; 71275; 80053; 82947; 83605; 83690; 83735; 83880; 84145; 84484; 85025; 85379; 85610; 85730; 86140; 87428; 93005; 93010; 96361; 96374; 99284; 99285; J7030; Q9967; J3490

== ENCOUNTER 2024-08-30 19:14 | Emergency (ER) | payer MEDICARE, MEDICAID ==
[2024-08-30 19:36] VITALS: BP 108/66; PULSE 80
[2024-08-30] MEDS: Take Home: Doxycycline 100 MG Cap, 4 Cap Pack PO ONE (19:42)
[2024-08-30] MEDS: Take Home: Clindamycin HCl 150 MG, 12 Cap Pack PO ONE (19:45)
== END 2024-08-30 20:05 | disposition home or self-care (01) ==
LOC: DL.ED 19:14
DX: L03.811 Cellulitis of head [any part, except face] (principal); I11.0 Hypertensive heart disease with heart failure; I50.9 Heart failure, unspecified; I25.2 Old myocardial infarction; E78.00 Pure hypercholesterolemia, unspecified; K21.9 Gastro-esophageal reflux disease without esophagitis; E11.9 Type 2 diabetes mellitus without complications; E66.9 Obesity, unspecified; Z68.41 Body mass index [BMI] 40.0-44.9, adult; Z88.0 Allergy status to penicillin; Z88.6 Allergy status to analgesic agent; Z91.030 Bee allergy status; Z79.4 Long term (current) use of insulin; Z79.82 Long term (current) use of aspirin; Z79.899 Other long term (current) drug therapy
CPT/HCPCS: 99284; A9270-GY

== ENCOUNTER 2025-05-01 15:48 | Emergency (ER) | payer MEDICARE, MEDICAID ==
[2025-05-01] MEDS: methylPREDNISolone Sodium Succinate 125 MG/2 ML SDV IVPUSH ONE (16:18)
[2025-05-01] MEDS: diphenhydrAMINE 50 MG/ML SDV IVPUSH ONE (16:18)
[2025-05-01 17:00] VITALS: BP 138/67; PULSE 68
== END 2025-05-01 16:40 | disposition home or self-care (01) ==
LOC: DL.ED 15:48
DX: T63.441A Toxic effect of venom of bees, accidental (unintentional), initial encounter (principal); T78.2XXA Anaphylactic shock, unspecified, initial encounter; I11.0 Hypertensive heart disease with heart failure; I50.9 Heart failure, unspecified; I25.2 Old myocardial infarction; I48.91 Unspecified atrial fibrillation; E11.9 Type 2 diabetes mellitus without complications; E66.9 Obesity, unspecified; E78.00 Pure hypercholesterolemia, unspecified; K21.9 Gastro-esophageal reflux disease without esophagitis; M19.90 Unspecified osteoarthritis, unspecified site; Z79.899 Other long term (current) drug therapy; Z79.4 Long term (current) use of insulin
CPT/HCPCS: 96374; 96375; 99283; J1200; J1308; J2919; J7030